=== PATIENT | female | born 1980 | race Two or more races ===

== ENCOUNTER 2017-05-22 08:51 | Day surgery (SDC) | payer OTHER ==
[2017-05-22] VITALS (10 sets, daily range): BP systolic 114–146; BP diastolic 72–92
[~2017-05-22] VITALS: Ht 154.9 cm; Wt 72.1 kg
[~2017-05-22 08:51] MED LIST: Acetaminophen (Non formulary) 100 ML IV ONE; NKM; ceFAZolin 1gm in D5W 55ml IVP ONE; celeBREX 200mg Cap **SURGERY PATIENTS ONLY ORAL ONE; oxyCONTIN 20mg tab ORAL ONE
--- NOTE | 2017-05-22 08:51 | Pre-Procedure Note/Attestation ---
Pre-Procedure Note/Attestation Complete Prior to Procedure Planned Procedure: left Procedure Narrative: shoulder arthroscopy, possible labral repair, possible sad Indications for Procedure Pre-Operative Diagnosis: left shoulder labral tear, impingement Attestation I attest that I discussed the nature of the procedure; its benefits; risks and complications; and alternatives (and the risks and benefits of such alternatives ), prior to the procedure, with the patient (or the patient's legal traffic representative). I attest that, if there was a reasonable possibility of needing a blood transfusion, the patient (or the patient's legal traffic representative) was given the [facility] standardized written summary, pursuant to the [place] Blood Safety Act ([place] Health and Safety Code # 1645, as amended). I attest that I re-evaluated the patient just prior to the surgery and that there has been no change in the patient's H&P, except as documented below: RENUKA MAYORGA May 22, 2017 08:50
--- NOTE | 2017-05-22 08:51 | Operative Note - PDOC ---
Operative Note Operative Note Pre-op Diagnosis: left shoulder labral tear, impingement Procedure: left shoulder arthroscopy sad Operative Findings: consistent w/pre-op dx studies Anesthesia: regional Specimen: none Complications: none Condition: stable Estimated Blood Loss: none Implant(s) used?: Yes RENUKA MAYORGA May 22, 2017 08:51
[2017-05-22] MEDS ORDERED: D5 1/2NS 1,000 ML IV SCH (09:00)
[2017-05-22] MEDS ORDERED: Tylenol #3 tab (300mg/30mg) ORAL PRN (09:00)
[2017-05-22] MEDS ORDERED: Norco 5mg/325mg tab ORAL PRN (09:00)
[2017-05-22] MEDS ORDERED: HYDROmorphone 1mg/ml Carpuject SUBQ PRN (09:00)
[2017-05-22] MEDS ORDERED: celeBREX 200mg Cap **SURGERY PATIENTS ONLY ORAL ONE (09:53)
[2017-05-22] MEDS ORDERED: Ropivacaine 5mg/ml Vial 30ml INJ ONE (10:01)
[2017-05-22] MEDS ORDERED: Bupivacaine 0.25% Inj 30ml INJ ONE (10:01)
[2017-05-22] MEDS ORDERED: EPINEPHrine 1mg/1ml Amp ONE (10:01)
[2017-05-22] MEDS ORDERED: Propofol 200mg/20ml IV ONE (10:01)
[2017-05-22] MEDS ORDERED: Midazolam 2mg/2ml Inj ONE (10:30)
[2017-05-22] MEDS ORDERED: Zemuron 50mg/5ml Inj IV ONE (10:30)
[2017-05-22] MEDS ORDERED: LR 1000ml ONE (10:30)
[2017-05-22] MEDS ORDERED: Metoclopramide 10mg/2ml Inj ONE (10:30)
[2017-05-22] MEDS ORDERED: Ketorolac 30mg Inj ONE (10:30)
[2017-05-22] MEDS ORDERED: fentaNYL 100 mcg/2 mL IV ONE (10:30)
[2017-05-22] MEDS ORDERED: Morphine Sulfate 10mg/ml Inj ONE (10:30)
[2017-05-22] MEDS ORDERED: fentaNYL 100 mcg/2 mL IV PRN (11:45)
[2017-05-22] MEDS ORDERED: DiphenhydrAMINE 50mg/ml Inj IVP PRN (11:45)
[2017-05-22] MEDS ORDERED: LR 1000ml 1,000 ML IVLG SCH (11:45)
[2017-05-22] MEDS ORDERED: Ketorolac 30mg Inj IV PRN (11:45)
[2017-05-22] MEDS ORDERED: Midazolam 2mg/2ml Inj IVP PRN (11:45)
--- NOTE | 2017-05-22 11:51 | Anethesia Preoperative Eval ---
Anesthesia Pre-op PMH/ROS General Date of Evaluation: May 22, 2017 Time of Evaluation: 10:30 Anesthesiologist: DHRVU ASA Score: ASA 2 Mallampati Score Class I : Soft palate, uvula, fauces, pillars visible Class II: Soft palate, uvula, fauces visible Class III: Soft palate, base of uvula visible Class IV: Only hard plate visible Mallampati Classification: Class I Surgeon: MUKESH Diagnosis: Left Shoulder Impingement Surgical Procedure: Left Shoulder SAD Anesthesia History: none Family History: no anesthesia problems Allergies: Coded Allergies: No Known Allergies (Unverified , 05/21/17) Medications: see eMAR Anesthesia Pre-op Phys. Exam Physician Exam Last Vital Signs Date Time Temp Pulse Resp B/P (MAP) Pulse Ox O2 Delivery O2 Flow Rate FiO2 05/22/17 09:45 98.1 82 20 114/72 100 Room Air Constitutional: NAD Neurologic: CN 2-12 intact Cardiovascular: RRR Respiratory: CTA Gastrointestinal: S/NT/ND Airway Exam Mallampati Score: Class II MO: full ROM: full Teeth: intact Anesthesia Pre-op A/P Labs Urine Test Test 05/22/17 09:15 Urine HCG, Qualitative Negative Risk Assessment & Plan Plan: GA Pre-Antibiotics Drug: Ancef Given Within 1 Hr of Incision: Yes Time Given: 10:45 Suresh Lyman M.D. May 22, 2017 11:51
--- NOTE | 2017-05-22 11:52 | Immediate Post-Op Evaluation ---
Immediate Post-Op Evalulation Immediate Post-Op Evalulation Procedure: Left Shoulder Arthroscopy Date of Evaluation: May 22, 2017 Time of Evaluation: 12:15 IV Fluids: 1000 Blood Products: 0 Estimated Blood Loss: 20` Urinary Output: 0` Blood Pressure Systolic: 129 Blood Pressure Diastolic: 62 Pulse Rate: 78 Respiratory Rate: 16 O2 Sat by Pulse Oximetry: 99 Temperature (Fahrenheit): 98 Pain Score (1-10): 0 Nausea: No Vomiting: No Patient Status: awake, reacts, patent, extubated Hydration Status: adequate Drug: Ancef Given Within 1 Hr of Incision: Yes Time Given: 10:45 Suresh Lyman M.D. May 22, 2017 11:52
[2017-05-22] MEDS ORDERED: NS Irrig 4000ml IRRIG ONE (12:01)
--- NOTE | 2017-05-22 13:24 | 48 Hour Post Anesthesia Eval ---
Post Anesthesia Evaluation Procedure: Left Shoulder Arthroscopy Date of Evaluation: May 24, 2017 Time of Evaluation: 09:00 Blood Pressure Systolic: 129 0: 75 Pulse Rate: 78 Respiratory Rate: 19 Temperature (Fahrenheit): 98 O2 Sat by Pulse Oximetry: 99 Airway: patent Nausea: No Vomiting: No Pain Intensity: 0 Hydration Status: adequate Mental Status/LOC: patient returned to baseline Post-Anesthesia Complications: none Follow-up care needed: patient intructions given Suresh Lyman M.D. May 22, 2017 13:24
--- NOTE | 2017-05-22 19:30 | Operative Note - Dictated ---
DATE OF OPERATION: 05/22/2017 PREOPERATIVE DIAGNOSES: 1. Left shoulder possible SLAP tear. 2. Left shoulder impingement syndrome. POSTOPERATIVE DIAGNOSES: 1. Left shoulder possible SLAP tear. 2. Left shoulder impingement syndrome. PROCEDURES: 1. Left shoulder arthroscopy. 2. Left shoulder subacromial decompression bursectomy and release of the CA ligament. INDICATION FOR THE PROCEDURE: The patient is a pleasant female who has had continued left shoulder pain. She had MRI, which showed a possible labral tear. Given that she failed conservative treatment, she elected to undergo left shoulder diagnostic arthroscopy with possible labral tear with concurrent subacromial decompression bursectomy. Risks, limitations, expectations, and complications related to the procedure were discussed in detail. All questions were addressed. DESCRIPTION OF PROCEDURE: The patient was taken operating room and placed in a beach-chair position with care to pad all the extremities. The left shoulder was prepped and draped in a sterile manner. Ancef was administered. Time-out was performed. Posterolateral stab incision then made. Trocar was then introduced into glenohumeral joint. No chondral damage. There was a [place] complex that was in the anterior labrum. The superior labrum appeared to be intact along the biceps tendon. The undersurface of the rotator cuff was intact. There is no intraarticular loose bodies. The camera was then repositioned in the subacromial space. There is significant erythema along the CA ligament anteriorly. Lateral working portal was established. The CA ligament was released from the acromion and anterior aspect of acromion was identified and decompressed from medial lateral posterior to anterior. Once that was complete bursectomy was completed in the posterior aspect as well as anteriorly. Once the bursectomy was completed, the bursal side of the rotator cuff was noted to be intact. At this point, the instruments were removed. Portal sites were closed with 3-0 Monocryl sutures. Steri-Strips and a sterile dressing were applied. Lex Larson M.D. DR: Graeme JOB#: [id number] CC: IDRIS
== END 2017-05-22 14:00 | disposition home or self-care (01) ==
LOC: SUR 08:51
DX: M75.41 Impingement syndrome of right shoulder (principal); Z83.3 Family history of diabetes mellitus
CPT/HCPCS: 29823; 81025; J0171; J0690; J1885; J2250; J2270; J2405; J2704; J2765; J2795; J3010; J3490; J7120; 94003; 94150

== ENCOUNTER 2017-12-04 05:38 | Day surgery (SDC) | payer OTHER ==
[~2017-12-04] VITALS: Ht 154.9 cm; Wt 66.7 kg
[2017-12-04] VITALS (11 sets, daily range): BP systolic 98–121; BP diastolic 61–77
[~2017-12-04 05:38] MED LIST changes: -Acetaminophen (Non formulary) 100 ML IV ONE; -ceFAZolin 1gm in D5W 55ml IVP ONE; -celeBREX 200mg Cap **SURGERY PATIENTS ONLY ORAL ONE; -oxyCONTIN 20mg tab ORAL ONE
[2017-12-04] MEDS ORDERED: ceFAZolin 1gm in D5W 55ml IVP SCH (06:00)
[2017-12-04] MEDS ORDERED: celeBREX 200mg Cap **SURGERY PATIENTS ONLY ORAL SCH (06:00)
[2017-12-04] MEDS ORDERED: oxyCONTIN 20mg tab ORAL SCH (06:00)
--- NOTE | 2017-12-04 07:20 | Pre-Procedure Note/Attestation ---
Pre-Procedure Note/Attestation Complete Prior to Procedure Planned Procedure: right Procedure Narrative: wrist extensor compartment release Indications for Procedure Pre-Operative Diagnosis: right wrist tendenitis Attestation I attest that I discussed the nature of the procedure; its benefits; risks and complications; and alternatives (and the risks and benefits of such alternatives ), prior to the procedure, with the patient (or the patient's legal termite control service representative). I attest that, if there was a reasonable possibility of needing a blood transfusion, the patient (or the patient's legal termite control service representative) was given the [facility] standardized written summary, pursuant to the [place] Blood Safety Act ([place] Health and Safety Code # 1645, as amended). I attest that I re-evaluated the patient just prior to the surgery and that there has been no change in the patient's H&P, except as documented below: Lex Larson MD Dec 04, 2017 07:20
--- NOTE | 2017-12-04 07:21 | Operative Note - PDOC ---
Operative Note Operative Note Pre-op Diagnosis: right wrist tendenitis Procedure: see op report Post-op Diagnosis: same as pre-op plus Operative Findings: consistent w/pre-op dx studies Anesthesia: MAC Specimen: none Complications: none Condition: stable Estimated Blood Loss: none Implant(s) used?: No Lex Larson MD Dec 04, 2017 07:21
[2017-12-04] MEDS ORDERED: HYDROmorphone 1mg/ml Carpuject SUBQ PRN (07:30)
[2017-12-04] MEDS ORDERED: Norco 5mg/325mg tab ORAL PRN (07:30)
[2017-12-04] MEDS ORDERED: D5 1/2NS 1,000 ML IV SCH (07:30)
[2017-12-04] MEDS ORDERED: Tylenol #3 tab (300mg/30mg) ORAL PRN (07:30)
--- NOTE | 2017-12-04 07:35 | Anethesia Preoperative Eval ---
Anesthesia Pre-op PMH/ROS General Date of Evaluation: Dec 04, 2017 Time of Evaluation: 07:34 Anesthesiologist: carpel tunnel ASA Score: ASA 1 Mallampati Score Class I : Soft palate, uvula, fauces, pillars visible Class II: Soft palate, uvula, fauces visible Class III: Soft palate, base of uvula visible Class IV: Only hard plate visible Mallampati Classification: Class I Surgeon: fadumo Diagnosis: carpel tunnel Surgical Procedure: right carpel tunnel Family History: no anesthesia problems Allergies: Coded Allergies: No Known Allergies (Unverified , 05/21/17) Medications: see eMAR Past Medical History Cardiovascular: Denies: HTN, CAD, MD, valve dz, arrhythmia, other Pulmonary: Denies: asthma, COPD, IRLANDA, other Gastrointestinal/Genitourinary: Denies: GERD, CRI, ESRD, other Neurologic/Psychiatric: Denies: dementia, CVA, depression/anxiety, TIA, other Endocrine: Denies: DM, hypothyroidism, steroids, other HEENT: Denies: cataract (L), cataract (R), glaucoma, YOMBA SHOSHONE (L), YOMBA SHOSHONE (R), other Hematology/Immune: Denies: anemia, DVT, bleeding disorder, other Musculoskeletal/Integumentary: Denies: OA, RA, DJD, DDD, edema, other PSxH Narrative: left shoulder arthroscopy Anesthesia Pre-op Phys. Exam Physician Exam Last Vital Signs Date Time Temp Pulse Resp B/P (MAP) Pulse Ox O2 Delivery O2 Flow Rate FiO2 12/04/17 06:40 97.9 69 20 109/77 (88) 98 97.9 12/04/17 06:32 Room Air Constitutional: NAD Neurologic: CN 2-12 intact Cardiovascular: RRR Respiratory: CTA Gastrointestinal: S/NT/ND Airway Exam Mallampati Classification 2 Mallampati Score: Class II MO: full ROM: full Teeth: missing Dentures: no upper, no lower Anesthesia Pre-op A/P Labs Urine Test Test 12/04/17 05:50 Urine HCG, Qualitative Negative (NEGATIVE) Risk Assessment & Plan Plan: general Pre-Antibiotics Drug: ancef Given Within 1 Hr of Incision: Yes Ttia River CRNA Dec 04, 2017 07:35
[2017-12-04] MEDS ORDERED: Bupivacaine 0.5% Inj 30 ml vial INJ ONE (07:36)
[2017-12-04] MEDS ORDERED: Kenalog-40 1ml Vial ONE (07:36)
[2017-12-04] MEDS ORDERED: Midazolam 2mg/2ml Inj ONE (07:40)
[2017-12-04] MEDS ORDERED: Ketorolac 30mg Inj IV PRN (07:45)
[2017-12-04] MEDS ORDERED: fentaNYL 100 mcg/2 mL IV PRN (07:45)
[2017-12-04] MEDS ORDERED: NS Irrig 1000ml IRRIG ONE (07:55)
[2017-12-04] MEDS ORDERED: LR 1000ml ONE (08:00)
[2017-12-04] MEDS ORDERED: Propofol 200mg/20ml IV ONE (08:13)
[2017-12-04] MEDS ORDERED: Lidocaine 1% MPF 10mg/ml 5ml ONE (08:13)
[2017-12-04] MEDS ORDERED: Metoclopramide 10mg/2ml Inj ONE (08:13)
[2017-12-04] MEDS ORDERED: Ketorolac 30mg Inj ONE (08:13)
--- NOTE | 2017-12-04 09:24 | Immediate Post-Op Evaluation ---
Immediate Post-Op Evalulation Immediate Post-Op Evalulation Procedure: right carpel tunnel repair Date of Evaluation: Dec 04, 2017 Time of Evaluation: 08:12 IV Fluids: 500 Blood Pressure Systolic: 98 Blood Pressure Diastolic: 61 Pulse Rate: 74 Respiratory Rate: 14 O2 Sat by Pulse Oximetry: 100 Temperature (Fahrenheit): 97.4 Nausea: No Vomiting: No Patient Status: awake, reacts, patent Hydration Status: adequate Drug: ancef Given Within 1 Hr of Incision: Yes Time Given: 07:50 Tita River CRNA Dec 04, 2017 09:23
--- NOTE | 2017-12-04 16:25 | 48 Hour Post Anesthesia Eval ---
Post Anesthesia Evaluation Procedure: right carpel tunnel repair Date of Evaluation: Dec 04, 2017 Time of Evaluation: 16:25 Blood Pressure Systolic: 121 0: 74 Pulse Rate: 65 Respiratory Rate: 14 O2 Sat by Pulse Oximetry: 100 Airway: patent Nausea: No Vomiting: No Hydration Status: adequate Cardiopulmonary Status: stable Mental Status/LOC: patient returned to baseline - na Follow-up Care/Observations: na Post-Anesthesia Complications: none Follow-up care needed: N/A Tita River CRNA Dec 04, 2017 16:25
--- NOTE | 2017-12-10 09:01 | Operative Note - Dictated ---
DATE OF OPERATION: 12/04/2017 PREOPERATIVE DIAGNOSIS: Right wrist tendonitis along the extensor carpi radialis brevis longus. POSTOPERATIVE DIAGNOSIS: Right wrist tendonitis along the extensor carpi radialis brevis longus. PROCEDURE: Right wrist tenosynovectomy of extensor carpi radialis brevis longus. SURGEON: Lex Larson M.D. ANESTHESIA: MAC With local. INDICATION FOR PROCEDURE: The patient is a pleasant female, who continues to have dorsal wrist pain after conservative treatment. She had an MRI, which showed some tenosynovitis along the extensor carpi radialis tendons. Given that she failed conservative treatment, she wished to undergo right wrist exploration with possible tenosynovectomy of the extensor carpi radialis. Risks, limitations, expectations, and complications of the procedure were discussed in detail. All questions addressed. DESCRIPTION OF PROCEDURE: After informed consent was obtained, the patient was brought to the operating room. We placed the patient under monitored anesthesia control. Right arm was prepped and draped in a sterile manner. Time-out was performed. The third extensor compartment was marked out. A dorsal incision was then made. Subcutaneous tissue dissection of the extensor retinaculum was performed. The ECRB and ECRL tendons were identified. The extensor retinaculum was released. Complete tenosynovectomy of both tendons was performed. Once that was done, the tendons were explored to make sure there is no longitudinal tears. Once that was confirmed, the wound was copiously irrigated. Retinaculum was loosely approximated using 3-0 Monocryl sutures. The skin was approximated using 3-0 Monocryl sutures. Steri-Strips and a sterile dressings were applied. The patient was awoken and taken to the recovery room with stable vital signs. ESTIMATED BLOOD LOSS: None. COMPLICATIONS: None. SPECIMENS: None. IMPLANTS: None. Lex Larson M.D. DR: JOSSY JOB#: [id number] CC:
== END 2017-12-04 11:20 | disposition home or self-care (01) ==
LOC: SUR 05:38
DX: M77.8 Other enthesopathies, not elsewhere classified (principal); E66.3 Overweight
CPT/HCPCS: 25116; 81025; J0690; J1885; J2250; J2405; J2704; J2765; J3010; J3490; J7120; 94003; 94150

== ENCOUNTER 2018-03-09 09:12 | Inpatient (IN) | payer OTHER ==
[2018-03-09] VITALS (8 sets, daily range): BP systolic 121–135; BP diastolic 70–89
[~2018-03-09] VITALS: Ht 154.9 cm; Wt 71.2 kg
[~2018-03-09 09:12] MED LIST changes: +Acetaminophen (Non formulary) 100 ML IV ONE; +Atropine Sulfate 0.4mg/ml inj IVP PRN; +Bacitracin 50000 Units Vial ONE; +Dexamethasone 20mg/5ml IVP ONE; +Dexamethasone 4mg/ml vial ONE; +DiphenhydrAMINE 50mg/ml Inj IVP PRN; +Gelfoam Size TOPIC ONE; +Glycopyrrolate 0.2mg/ml 1ml Vial ONE; +HYDROcodone/Acetamin 7.5/325 tab ORAL PRN; +Hydromorphone 0.5mg/0.5ml inj IVP PRN; +Ketorolac 30mg Inj IV PRN; +LORazepam Inj 2mg/ml 1ml IV PRN; +LR 1000ml 1,000 ML IVLG SCH; +Lidocaine 1% MPF 10mg/ml 5ml ONE; +Lidocaine 1% Plain 30 ml INJ ONE; +Meperidine 50mg/ml Inj(FOR RIGORS ONLY) IVP PRN; +Metoclopramide 10mg/2ml Inj IVP PRN; +Midazolam 2mg/2ml Inj IVP PRN; +Norco 5mg/325mg tab ORAL PRN; +Sodium Chloride 10ml vial INJ ONE; +Thrombin 5000 units TOPIC ONE; +Zemuron 50mg/5ml Inj IV ONE; +ceFAZolin sod 1 GM in NS 55 ML IVPB ONE; +fentaNYL 100 mcg/2 mL IV ONE; +fentaNYL 100 mcg/2 mL IV PRN; +oxyCODONE HCL/Acetaminophen 5/325mg ORAL PRN
[2018-03-09] MEDS ORDERED: Dexamethasone 20mg/5ml ONE (09:40)
--- NOTE | 2018-03-09 09:46 | Anethesia Preoperative Eval ---
Anesthesia Pre-op PMH/ROS General Date of Evaluation: Mar 09, 2018 Time of Evaluation: 09:51 Anesthesiologist: Ashlee ASA Score: ASA 2 Mallampati Score Class I : Soft palate, uvula, fauces, pillars visible Class II: Soft palate, uvula, fauces visible Class III: Soft palate, base of uvula visible Class IV: Only hard plate visible Mallampati Classification: Class I Surgeon: Vanessa Diagnosis: Neck Pain Surgical Procedure: ACDF C5-6, C6-7 Anesthesia History: none Family History: no anesthesia problems Allergies: Coded Allergies: No Known Allergies (Unverified , 05/21/17) Medications: see eMAR Patient NPO?: Yes NPO Date: Mar 08, 2018 NPO Time: [id number] Past Medical History Other: obesity - BMI 30 PSxH Narrative: L Shoulder SX, R Wrist Sx Anesthesia Pre-op Phys. Exam Physician Exam Last Vital Signs Date Time Temp Pulse Resp B/P (MAP) Pulse Ox O2 Delivery O2 Flow Rate FiO2 03/09/18 09:35 97.7 81 20 127/85 (99) 99 03/09/18 09:32 Room Air Constitutional: NAD Neurologic: CN 2-12 intact Cardiovascular: RRR Respiratory: CTA Gastrointestinal: S/NT/ND Airway Exam Mallampati Score: Class II MO: full ROM: limited Teeth: intact Anesthesia Pre-op A/P Labs Urine Test Test 03/09/18 09:30 Urine HCG, Qualitative Pending Risk Assessment & Plan Assessment: ASA 2 Plan: GA, GlideScope Go, SED Status Change Before Surgery: No Pre-Antibiotics Dru grams Ancef IV Given Within 1 Hr of Incision: Yes Time Given: 10:08 Rodolfo Rosado MD Mar 09, 2018 09:46
--- NOTE | 2018-03-09 09:47 | Immediate Post-Op Evaluation ---
Immediate Post-Op Evalulation Immediate Post-Op Evalulation Procedure: ACDF C5-6, C6-7 Date of Evaluation: Mar 09, 2018 Time of Evaluation: 13:40 IV Fluids: 900 LR Blood Products: 0 Estimated Blood Loss: 20 Urinary Output: 0 Blood Pressure Systolic: 128 Blood Pressure Diastolic: 89 Pulse Rate: 86 Respiratory Rate: 16 O2 Sat by Pulse Oximetry: 100 Temperature (Fahrenheit): 97.5 Pain Score (1-10): 2 Nausea: No Vomiting: No Complications 0 Patient Status: awake, reacts, patent, extubated, none Hydration Status: adequate Dru grams Ancef IV Given Within 1 Hr of Incision: Yes Time Given: 10:08 Rodolfo Rosado MD Mar 09, 2018 09:47
--- NOTE | 2018-03-09 09:47 | 48 Hour Post Anesthesia Eval ---
Post Anesthesia Evaluation Procedure: ACDF C5-6, C6-7 Date of Evaluation: Mar 09, 2018 Time of Evaluation: 15:48 Blood Pressure Systolic: 123 0: 74 Pulse Rate: 76 Respiratory Rate: 18 Temperature (Fahrenheit): 98.2 O2 Sat by Pulse Oximetry: 100 Airway: patent Nausea: No Vomiting: No Pain Intensity: 2 Hydration Status: adequate Cardiopulmonary Status: Stable Mental Status/LOC: patient returned to baseline Follow-up Care/Observations: 0 Post-Anesthesia Complications: 0 Follow-up care needed: ready to discharge Rodolfo Rosado MD Mar 09, 2018 09:47
--- NOTE | 2018-03-09 09:50 | Pre-Procedure Note/Attestation ---
Pre-Procedure Note/Attestation Complete Prior to Procedure Planned Procedure: not applicable Procedure Narrative: ACDF C5-C6, C6-C7. Anterior plate fixation Indications for Procedure Pre-Operative Diagnosis: Post trauma Cervical radiculopathy Attestation I attest that I discussed the nature of the procedure; its benefits; risks and complications; and alternatives (and the risks and benefits of such alternatives ), prior to the procedure, with the patient (or the patient's legal community health program representative). I attest that, if there was a reasonable possibility of needing a blood transfusion, the patient (or the patient's legal community health program representative) was given the [place] [facility] standardized written summary, pursuant to the [place] Blood Safety Act ([place] Health and Safety Code # 1645, as amended). I attest that I re-evaluated the patient just prior to the surgery and that there has been no change in the patient's H&P, except as documented below: Nikko Mendez MD Mar 09, 2018 09:50
[2018-03-09] MEDS ORDERED: fentaNYL 100 mcg/2 mL IV ONE (11:16)
[2018-03-09] MEDS ORDERED: Lidocaine 1% Plain 30 ml INJ ONE (11:28)
--- NOTE | 2018-03-09 13:04 | Brief Operative Note ---
Immediate Post Operative Note Operative Note Pre-op Diagnosis: Post trauma Cervical radiculopathy Procedure: ACDF C5-6 C6-7 Anterior Plate SSEP Microscope Xray Post-op Diagnosis: same as pre-op Findings: consistent w/pre-op dx studies Surgeon: Vanessa VELOZ Corrective Therapist: Maddie SESAY Anesthesiologist: Ashlee VELOZ Anesthesia: general Specimen: yes Complications: none Condition: stable Fluids: anesthesia Estimated Blood Loss: minimal Drains: none Implant(s) used?: Yes Nikko Mendez MD Mar 09, 2018 13:04
[2018-03-09] MEDS ORDERED: DiphenhydrAMINE 50mg/ml Inj IVP PRN (14:15)
[2018-03-09] MEDS ORDERED: Metoclopramide 10mg/2ml Inj IVP PRN (14:15)
[2018-03-09] MEDS ORDERED: Midazolam 2mg/2ml Inj IVP PRN (14:15)
[2018-03-09] MEDS ORDERED: oxyCODONE HCL/Acetaminophen 5/325mg ORAL PRN (14:15)
[2018-03-09] MEDS ORDERED: fentaNYL 100 mcg/2 mL IV PRN (14:15)
[2018-03-09] MEDS ORDERED: HYDROcodone/Acetamin 7.5/325 tab ORAL PRN (14:15)
[2018-03-09] MEDS ORDERED: Meperidine 50mg/ml Inj(FOR RIGORS ONLY) IVP PRN (14:15)
[2018-03-09] MEDS ORDERED: Atropine Sulfate 0.4mg/ml inj IVP PRN (14:15)
[2018-03-09] MEDS ORDERED: Hydromorphone 0.5mg/0.5ml inj IVP PRN (14:15)
[2018-03-09] MEDS ORDERED: Norco 5mg/325mg tab ORAL PRN (14:15)
[2018-03-09] MEDS ORDERED: LORazepam Inj 2mg/ml 1ml IV PRN (14:15)
[2018-03-09] MEDS ORDERED: Ketorolac 30mg Inj IV PRN ×2 (14:15)
--- NOTE | 2018-03-09 14:18 | Diagnostic Imaging Report ---
INDICATION: Neck pain, intraoperative imaging during cervical fusion surgery TECHNIQUE: Intraoperative imaging Fluoroscopy time: 27.1 seconds Total dose: [id number] mGym2 Total number of images: 5 COMPARISON: None FINDINGS: Intraoperative images demonstrate localizer tool projected at the anterior aspect of the C5-6 disc. Subsequent images document placement of anterior fusion hardware and disc spacers at C5, C6, C7 and the intervening discs IMPRESSION: Intraoperative imaging, as described
[2018-03-09] MEDS ORDERED: HYDROcodone/Acetamin 10/325 tab ORAL PRN (17:45)
[2018-03-09] MEDS ORDERED: Chloraseptic Spray 20mL Bottle ORAL SCH (18:00)
[2018-03-09] MEDS ORDERED: Chloraseptic Spray 20mL Bottle ORAL PRN (18:00)
[2018-03-09] MEDS ORDERED: D5 1/2NS 1,000 ML IV SCH (18:00)
[2018-03-09] MEDS ORDERED: Naloxone 0.4mg/ml Inj IVP PRN (18:00)
[2018-03-09] MEDS ORDERED: Morphine Sulfate 4mg/ml Inj (IV/IM USE ONLY) IM PRN (18:00)
[2018-03-09] MEDS ORDERED: ceFAZolin sod 1 GM in D5W 55 ML IV SCH (18:00)
--- NOTE | 2018-03-09 20:02 | Operative Note - Dictated ---
DATE OF OPERATION: 03/09/2018 SURGEON: Nikko Mendez, Ph.D., M.D. FUR GLAZER: SHAMA Carnes. ANESTHESIOLOGIST: Rodolfo Rosado M.D. ANESTHESIA: General with intubation. 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 POSTOPERATIVE DIAGNOSIS: Posttraumatic cervical cord compression/herniated nucleus polyposis with radiculopathy. OPERATIVE PROCEDURE: 1. Anterior cervical diskectomy with fusion, C5-C6 and C6-C7. 2. Anterior internal plate fixation. 3. Intraoperative fluoroscopy interpreted by surgeon. 4. SSEP monitoring. 5. High-power microscopic dissection. ESTIMATED BLOOD LOSS: Minimal. COMPLICATIONS: None. POSTOP CONDITION: Good/stable. DESCRIPTION OF PROCEDURE: The patient was brought to the operating room and in the supine position, general anesthesia with intubation was induced. IV antibiotics and IV Decadron were administered 30 minutes prior to incision time. After appropriate supine position, anterior cervical spine was sterilely prepped and draped free in usual sterile fashion. Transverse left incision was sharply placed in the dermis and epidermis. Electrocautery dissection was carried through the subcutaneous tissue to the level of the platysmas muscle identified, isolated, and transected in line with the incision. Under high-power magnification, blunt dissection was carried sequentially through the deep cervical and pretracheal fascia medial to the carotid sheath and medial to the left sternocleidomastoid muscle. Midline was approached. A spinal needle bent at 90-degree angle so as to avoid penetration greater than 3 mm was placed into the disk space midline. A lateral radiograph was obtained under sterile conditions demonstrating the correct level through the dissection. Level marked. Needle removed. Longus colli muscles elevated subperiosteally not exceeding 3 mm in the mediolateral extent over the involved intervals. Retractors placed at the C6-C7 interval. Annulotomy was performed followed by diskectomy to the posterior longitudinal ligament. End-plates denuded of cartilaginous endplates. Subchondral bone maintained in integrity. Posterior longitudinal ligament resected under high-power magnification with decompression of the spinal cord/anterior foraminotomies bilaterally. The patient is stable at all times. Appropriate dimensioned trial was utilized with AP and lateral radiographs obtained under sterile conditions demonstrating the correct level, midline, correct depth. Position marked. Trial removed. Titanium implant was filled with osteopromotive material in combination with local autograft. The graft tamped into position. AP and lateral radiographs obtained under sterile conditions demonstrating excellent alignment/position. Attention was turned to the C5-C6 interval with retractors placed at that interval. Annulotomy followed with diskectomy to the posterior longitudinal ligament. Posterior longitudinal ligament resected under high-power magnification. Decompression undertaken. No dural tears or leaks noted at either level during the procedure. No SSEP irregularities or EMG activity throughout the procedure. After appropriate trial utilization and determination, a titanium graft containing osteopromotive material in combination with local autograft was tamped into position midline. Alignment maintained between the 2 grafts. Wound was irrigated with antibiotic-containing saline. A 10 pounds traction on the neck was removed. Anterior internal plate fixation in a compressive fashion was undertaken with bilateral screws at C5, C6, and C7. Locked into position. AP and lateral radiographs obtained under sterile conditions demonstrating correct levels and excellent alignment/positioning. Wound is irrigated with antibiotic-containing saline. Exploration revealed no obvious excoriation or laceration of vital structures. FloSeal applied. Sequential reapproximation of platysmas muscle followed with dermis and epidermis in a subcuticular fashion with surgical strips. Sterile bandage applied. Maintained in place with tape. The patient was awakened and extubated in the operating room and transported to postop recovery in good/stable condition. Nikko Mendez M.D. DR: OMAIRA JOB#: [id number] CC:
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
== END 2018-03-09 18:39 | disposition home or self-care (01) | DRG 471 ==
LOC: SUR 09:12 → 3E 13:06 → UNDODISIN 18:39
PROC: 0RG20A0 Fusion of 2 or more Cervical Vertebral Joints with Interbody Fusion Device, Anterior Approach, Anterior Column, Open Approach (ICD-10-PCS; principal; 2018-03-09 07:00)
PROC: 0RB30ZZ Excision of Cervical Vertebral Disc, Open Approach (ICD-10-PCS; principal; 2018-03-09 07:00)
DX: M50.122 Cervical disc disorder at C5-C6 level with radiculopathy (principal); S14.105A Unspecified injury at C5 level of cervical spinal cord, initial encounter; V89.2XXA Person injured in unspecified motor-vehicle accident, traffic, initial encounter; E66.9 Obesity, unspecified; G89.18 Other acute postprocedural pain
CPT/HCPCS: 36415; 72040; 76001; 81025; 86850; 86900; 86901; 87081; 94003; 94150; J2405